=== PATIENT | male | born 1955 | race African-American/Black ===

== ENCOUNTER 2020-12-10 10:22 | Emergency (ER) | payer MEDICARE ==
[~2020-12-10] VITALS: Ht 188 cm; Wt 79.0 kg
[2020-12-10 13:50] VITALS: BP 121/69
== END 2020-12-10 14:18 | disposition home or self-care (01) ==
LOC: ER 10:22
DX: Z04.89 Encounter for examination and observation for other specified reasons (principal)
CPT/HCPCS: 93005; 99283